=== PATIENT | female | born 1940 | race Caucasian/White ===

== ENCOUNTER 2017-01-20 10:26 | Outpatient (CLI) | payer MEDICARE ==
--- NOTE | 2017-01-20 17:09 | NM ---
WHOLE BODY BONE SCAN: Date: 01/20/17 HISTORY: Lung cancer. RADIOPHARMACEUTICAL: 33 mCi technetium-99m MDP injected intravenously. FINDINGS: There is focal area of increased uptake in the lateral 7th rib. Mildly increased uptake in the shoulders, elbows, and wrists are consistent with degenerative change s. Tracer excretion through the kidneys is within normal limits. IMPRESSION: Focally increased uptake in the left 7th rib, suspicious for metastasis. POS: [facility]
== END 2017-01-20 10:27 | disposition home or self-care (01) ==
LOC: NM 10:26
PROVIDERS: ATTEND Internal Medicine Critical Care Medicine
DX: R91.8 Other nonspecific abnormal finding of lung field (principal)
CPT/HCPCS: 78306; A9503

== ENCOUNTER 2017-01-30 05:59 | Day surgery (SDC) | payer MEDICARE ==
[2017-01-21 14:38] VITALS: BMI 23.9
[2017-01-30] MEDS ORDERED: Lidocaine 4% Topical Sol 50 ML BOT ONE (06:52)
[2017-01-30] MEDS ORDERED: Lidocaine 1% (PF) 30 ML VIAL ONE (06:52)
[2017-01-30] MEDS ORDERED: Lidocaine 2% Jelly 5 ML TUBE ONE (06:52)
[2017-01-30] MEDS ORDERED: Midazolam HCl 2 mg/2 ml Vial ONE (06:54)
[2017-01-30] MEDS ORDERED: Benzocaine 20% Spray 60 ML CAN ONE (06:54)
[2017-01-30] MEDS ORDERED: Fentanyl 100 MCG/2 ML VIAL ONE (06:54)
[2017-01-30] MEDS ORDERED: methylPREDNISolone Sod Succ/PF 125 MG/2 ML VIAL ONE (10:34)
--- NOTE | 2017-01-30 18:39 | OP ---
DATE OF SERVICE: 01/30/2017 PROCEDURE: Fiberoptic bronchoscopy with brushings, washings and biopsies. INDICATION: Rapidly enlarging left lung mass. DESCRIPTION OF PROCEDURE: The patient was sedated with Versed and fentanyl. Once she was sedated, the bronchoscope was passed through her right naris and down to the vocal cords, which appeared norm al, moved normally with phonation. The scope was passed into her trachea which was normal in the ma in [place]. The main [place] was sharp. The right lower lobe, right upper lobe, right middle lobe we re unremarkable. The left lower lobe was unremarkable. Left upper lobe bronchus was obstructed by a friable mass. This was brushed, washed and biopsied multiple times. She coughed continuously thr oughout the procedure in spite of being sedated. She continues to be a heavy smoker. I met with her after the procedure. She had no recollection of the procedure and stated that she wa s comfortable with the procedure today. I met with the family and I met with her separately. I have explained to the family that she has a rapidly progressive malignant process. Hopefully we can identify the cell type and at least slow th is down. She is extremely anxious about all of this and family did not want her to any negative inf ormation, so I simply told her we had seen something in the biopsy and we would wait for those resul ts. She was discharged home in stable condition.
== END 2017-01-30 11:25 | disposition home or self-care (01) ==
LOC: SDC 05:59
PROVIDERS: ATTEND Internal Medicine Critical Care Medicine
PROC: 0BD88ZX Extraction of Left Upper Lobe Bronchus, Via Natural or Artificial Opening Endoscopic, Diagnostic (ICD-10-PCS; principal; 2017-01-30)
DX: C34.12 Malignant neoplasm of upper lobe, left bronchus or lung (principal); F17.200 Nicotine dependence, unspecified, uncomplicated; Z88.5 Allergy status to narcotic agent; Z88.1 Allergy status to other antibiotic agents
CPT/HCPCS: 88112; 88305; 88313; 88341; 88342; 96374; 99152; 99153; J2001; J2250; J2930; J3010; J7620

== ENCOUNTER 2017-02-11 06:35 | Day surgery (SDC) | payer MEDICARE ==
[2017-02-10 12:06] VITALS: BMI 22.8
[2017-02-11] MEDS ORDERED: Propofol 500 MG/50 ML VIAL ONE (07:07)
[2017-02-11] MEDS ORDERED: Fentanyl 100 MCG/2 ML VIAL ONE (07:08)
[2017-02-11] MEDS ORDERED: Lidocaine 1% (PF) 30 ML VIAL ONE (07:38)
[2017-02-11] MEDS ORDERED: Bupivacaine/Epinephrine 0.25% 30 ML VIAL ONE (07:38)
[2017-02-11] MEDS ORDERED: Ketorolac Tromethamine 30 MG/ML VIAL ONE (08:05)
[2017-02-11] MEDS ORDERED: CEFAZOLIN/Water 2 GM/20 ML SYRINGE ONE (08:05)
[2017-02-11] MEDS ORDERED: Ondansetron HCl/PF 4 MG/2 ML Vial ONE (08:33)
[2017-02-11] MEDS ORDERED: PHENYLEPHRINE-NS 100 MCG/ML 10 ML SYRINGE ONE (08:33)
--- NOTE | 2017-02-11 11:11 | OP ---
DATE OF PROCEDURE: 02/11/2017 PREOPERATIVE DIAGNOSIS: Left lung cancer. POSTOPERATIVE DIAGNOSIS: Left lung cancer. OPERATION PERFORMED: Right subclavian low profile power compatible MediPort. SURGEON: Russell Earl M.D. ANESTHESIA: Total intravenous anesthesia with local using 0.25% Marcaine with epinephrine. INDICATIONS: The patient is a 77-year-old white female recently diagnosed with left lung cancer. S he presents at this time for MediPort placement for chemotherapy. OPERATIVE PROCEDURE IN DETAIL: Informed consent was obtained. The patient was taken to the operati ng room where total intravenous anesthesia was obtained with the patient in supine position. Right periclavicular area was prepped with ChloraPrep and draped in sterile fashion. She was placed in Tr endelenburg position. Local anesthetic was infiltrated and a large gauge needle was passed in the c lavicle and subclavian vein on the initial pass. Guidewire was passed through the needle and fluoro scopically confirmed to enter the superior vena cava. Additional local anesthetic was infiltrated. Transverse incision was created based on needle insertion site. A subcutaneous pocket was dissecte d. Introducer dilator was passed over the guidewire under fluoroscopic guidance. The guidewire was removed and the catheter was passed through the introducer, which was then removed in the usual pee l-apart fashion. Catheter tip was positioned at the atrial caval junction. Catheter was trimmed to appropriate length and secured to the locking hub of the MediPort. The port was then secured to th e pectoral fascia with 2 interrupted sutures of 3-0 Prolene. Wound was closed in layers with 3-0 an d 4-0 Monocryl and Dermabond was placed externally. Post-procedure chest x-ray documents good posit ion of the port and catheter. The port was then accessed with the access needle. It aspirated bloo d freely and was flushed with heparinized saline. The needle was left in place and covered with a T egaderm dressing. There were no complications. The patient tolerated the procedure well and was ta mau back to day surgery in stable condition.
--- NOTE | 2017-02-11 13:28 | RAD ---
CHEST ONE VIEW: History: Status post Mediport placement. Comparison: None. FINDINGS: Portable upright chest demonstrates a right sided Mediport catheter with the distal tip projecting i n the superior vena cava. There is near complete opacification left hemithorax, incompletely evaluat ed. Obscuration in the left heart border. No evidence of cardiomegaly. Atherosclerosis of the aorta is normal. No pneumothorax. IMPRESSION: 1. Right sided Mediport catheter placement. No pneumothorax. 2. Opacification left hemithorax. POS: [facility]
== END 2017-02-11 09:40 | disposition home or self-care (01) ==
LOC: SDC 06:35
PROVIDERS: ATTEND Specialist
PROC: 0JH63WZ Insertion of Totally Implantable Vascular Access Device into Chest Subcutaneous Tissue and Fascia, Percutaneous Approach (ICD-10-PCS; principal; 2017-02-11)
DX: C34.92 Malignant neoplasm of unspecified part of left bronchus or lung (principal); C79.51 Secondary malignant neoplasm of bone; E11.9 Type 2 diabetes mellitus without complications; I25.10 Atherosclerotic heart disease of native coronary artery without angina pectoris; E78.5 Hyperlipidemia, unspecified; I11.0 Hypertensive heart disease with heart failure; I50.9 Heart failure, unspecified; K21.9 Gastro-esophageal reflux disease without esophagitis; F17.200 Nicotine dependence, unspecified, uncomplicated; I25.2 Old myocardial infarction; Z79.82 Long term (current) use of aspirin; Z79.899 Other long term (current) drug therapy; Z88.1 Allergy status to other antibiotic agents; Z88.5 Allergy status to narcotic agent; Z90.49 Acquired absence of other specified parts of digestive tract; Z90.711 Acquired absence of uterus with remaining cervical stump; Z98.890 Other specified postprocedural states; Z87.01 Personal history of pneumonia (recurrent)
CPT/HCPCS: 36561; 71010; 78815; A9552; C1788; J0131; J1642; J1885; J2001; J2405; J2704; J3010; J7620

== ENCOUNTER 2017-02-11 13:48 | Outpatient (CLI) | payer MEDICARE ==
--- NOTE | 2017-02-12 10:37 | PET ---
PET CT: HISTORY: A 77-year-old female with biopsy-proven small-cell carcinoma of the left lung on bronchoscopy of 01/30. Exam is requested for restaging. TECHNIQUE: PET scanning with CT attenuation correction was performed from the base of the brain through the prox imal thighs following the intravenous administration of 12 mCi X32-[id number] in the right ar m. Imaging was performed after an uptake interval of 56 minutes. COMPARISON: PET CT dated 10/05/16. CORRELATION: Bone scan of 01/20/[address] [facility] and CT chest of 01/08/17 from [facility]. FINDINGS: There is FDG localization in the large left upper lobe (and lingular) mass extending into the hilum s een on the CT scan with an SUV of 10. In the suprahilar portion of this mass, there is a focus of in creased uptake separate from the remainder of the mass with an SUV of 3.1. Hypermetabolic mediastinal lymph nodes are seen with SUVs of 6.3 in the prevascular, 3.7 in the right paratracheal, 4.1 in the subcarinal, and 4.2 in the posterior mediastinal lymph nodes. No cely hypermetabolism is seen in the neck, axillae, right hilum, abdomen, or pelvis. No hypermeta bolic liver, adrenal, or skeletal lesions are seen. No hypermetabolic activity is seen in the sclerotic focus in the lateral aspect of the left 7th rib. The 7th rib demonstrated increased uptake on the bone scan. The bone windows of the chest CT of 02/14 suggests this is an old fracture. There is physiologic activity in the GI and tracts and the visualized portions of the brain. The CT scan used for attenuation correction demonstrates a tiny left pleural effusion. No pericardia l effusion or ascites is seen. IMPRESSION: 1. Left lung malignancy with mediastinal lymph cely metastases. 2. Tiny left pleural effusion. POS: [facility]
== END 2017-02-11 13:49 | disposition home or self-care (01) ==
LOC: PET 13:48
PROVIDERS: ATTEND Internal Medicine Hematology & Oncology
DX: C39.0 Malignant neoplasm of upper respiratory tract, part unspecified (principal); C34.92 Malignant neoplasm of unspecified part of left bronchus or lung; C77.9 Secondary and unspecified malignant neoplasm of lymph node, unspecified; J90 Pleural effusion, not elsewhere classified
CPT/HCPCS: 78815; A9552

== ENCOUNTER 2017-03-27 11:05 | Day surgery (SDC) | payer MEDICARE ==
[2017-03-27] MEDS ORDERED: Acetaminophen 500 MG TAB PO SCH (12:00)
[2017-03-27] MEDS ORDERED: diphenhydrAMINE 25 MG CAP PO SCH (12:00)
[2017-03-27] MEDS ORDERED: Sodium Chloride 0.9% 20 ML ONE (13:51)
[2017-03-27 18:57] VITALS: BP 166/72; TEMP 97.5
[2017-03-27 19:47] LABS: Band 8 % (5-11); Hemoglobin 10.5 g/dL (12.0-16.0); Lymphocytes 3 % (21-51); MDiff Complete? YES; Mean Corpuscular HGB CONC 33.6 g/dL (32.0-36.0); Mean Corpuscular Hemoglobin 31.9 pg (27.0-31.0); Mean Corpuscular Volume 94.9 fl (81.0-99.0); Mean Platelet Volume 7.4 fL (7.4-10.4); Metamyelocyte 1 % (0-0); Monocytes 9 % (0-10); Neutrophil 77 % (42-75); Platelet Count 464 thou/uL (130-400); RBC Distribution Width 15.3 % (11.5-14.5); Reactive Lymphocytes 2 % (0-10); Red Blood Cell (RBC) Count 3.29 mill/uL (4.20-5.40); White Blood Cell (WBC) Count 19.9 thou/uL (4.8-10.8)
== END 2017-03-27 19:21 | disposition home or self-care (01) ==
LOC: ONC/OP 11:05
PROVIDERS: ATTEND Internal Medicine Hematology & Oncology
PROC: 30233N1 Transfusion of Nonautologous Red Blood Cells into Peripheral Vein, Percutaneous Approach (ICD-10-PCS; principal; 2017-03-27)
DX: D64.9 Anemia, unspecified (principal); D69.59 Other secondary thrombocytopenia; E11.9 Type 2 diabetes mellitus without complications; I25.10 Atherosclerotic heart disease of native coronary artery without angina pectoris; E78.5 Hyperlipidemia, unspecified; I11.0 Hypertensive heart disease with heart failure; I50.9 Heart failure, unspecified; K21.9 Gastro-esophageal reflux disease without esophagitis; Z79.82 Long term (current) use of aspirin; Z79.899 Other long term (current) drug therapy; Z88.5 Allergy status to narcotic agent; Z88.1 Allergy status to other antibiotic agents; Z90.711 Acquired absence of uterus with remaining cervical stump; Z98.890 Other specified postprocedural states
CPT/HCPCS: 36430; 85025; 86850; 86900; 86901; A4216; J1642; P9016

== ENCOUNTER 2017-04-17 10:49 | Outpatient (CLI) | payer MEDICARE ==
--- NOTE | 2017-04-17 12:23 | CT ---
CT CHEST WITHOUT CONTRAST: Technique: Multiple axial tomograms were obtained through the chest without IV enhancement. History: Restaging lung cancer. Comparison: PET CT 02-11-17 at [facility], CT chest performed at [facility] dated 01-08-17. FINDINGS: The opacification seen in the left upper lobe has decreased since the CT PET of 02-11-17. It is also smaller when compared to the 01-08-17 exam at [facility]. In the mid axial plane this left lung mass lesion extends to the pleural surface measuring 5.8 cm width in the axial plane x approximately 2.2 cm AP dimension. Previously this large mass density in the extraaxial plane measured up to 10 cm AP dimension. The mass lesion previously extended to the hilum and obstructed the bronchi. The hilar portion of this mass has resolved. The left upper lobe bronchus is engulfed by this mass peripherally , however, the bronchus just down the hilum appears patent today whereas it was previously occluded. The right lung remains clear. There continues to be a focal area of sclerosis involving the lateral left rib at the site where this mass abuts the pleural surface. This was noted on the recent CT. This could potentially represent an old healed rib fracture although metastatic lesion is not excluded. This area of the left 7th rib al so showed increased activity on bone scan. IMPRESSION: Significant reduction in size of the left upper lobe lung mass when compared to prior studies. POS: [facility]
== END 2017-04-17 10:50 | disposition home or self-care (01) ==
LOC: CT 10:49
PROVIDERS: ATTEND Internal Medicine Hematology & Oncology
DX: C39.0 Malignant neoplasm of upper respiratory tract, part unspecified (principal)
CPT/HCPCS: 71250

== ENCOUNTER 2017-04-23 06:54 | Inpatient (IN) | payer MEDICARE ==
[2017-04-23] MEDS ORDERED: Ondansetron HCl/PF 4 MG/2 ML Vial ONE (07:59)
[2017-04-23] MEDS ORDERED: Pantoprazole 40 MG VIAL ONE (08:39)
[2017-04-23 08:56] LABS: Hemoglobin 8.7 g/dL (12.0-16.0); Mean Corpuscular HGB CONC 33.7 g/dL (32.0-36.0); Mean Corpuscular Hemoglobin 32.1 pg (27.0-31.0); Mean Corpuscular Volume 95.4 fl (81.0-99.0); Mean Platelet Volume 8.2 fL (7.4-10.4); Platelet Count 113 thou/uL (130-400); RBC Distribution Width 16.5 % (11.5-14.5); Red Blood Cell (RBC) Count 2.71 mill/uL (4.20-5.40); White Blood Cell (WBC) Count 10.1 thou/uL (4.8-10.8)
[2017-04-23 09:12] LABS: Band 1 % (5-11); Hypersemented Neutrophil MODERATE; Lymphocytes 12 % (21-51); MDiff Complete? YES; Neutrophil 87 % (42-75); PLT Morphology Comment Appears Decreased; Polychromasia SLIGHT = 2-3 cells (100X) (0-2/hpf); Reflex for Review?? YES
[2017-04-23 09:18] LABS: ALT (SGPT) 39 U/L (8-55); AST (SGOT) 22 U/L (5-34); Albumin 3.2 g/dL (3.4-4.8); Alkaline Phosphatase 224 U/L (40-150); Anion Gap 15 mmol/L (10-20); BUN (Urea Nitrogen) 59 mg/dL (9.8-20.1); Bilirubin, Total 0.6 mg/dL (0.2-1.2); Calc. Creatinine Clearance 0 mL/min (70-130); Calcium 8.8 mg/dL (7.8-10.44); Carbon Dioxide 11 mmol/L (23-31); Chloride 115 mmol/L (98-107); Estimated GFR-MDRD 44; Globulin 2.7 g/dL (2.4-3.5); Glucose 128 mg/dL (83-110); Lipase 156 U/L (8-78); Potassium 4.5 mmol/L (3.5-5.1); Protein, Total 5.9 g/dL (6.0-8.3); Sodium 136 mmol/L (136-145)
[2017-04-23 10:46] LABS: Bilirubin Negative (Negative); Blood, Urine Trace (Negative); Clarity CLEAR (Clear); Glucose, Urine (Dipstick) Negative (Negative); Leukocyte Small (Negative); Nitrite Negative (Negative); Protein, Urine (Dipstick) 100 mg/dL (Neg-Trace); Specific Gravity, Urine 1.017 (1.002-1.036); Urobilinogen 0.2 mg/dL (0.2-1.0)
[2017-04-23 10:48] LABS: Bacteria/HPF None Seen HPF (None Seen); Hyaline Casts/LPF 0-3 HYALINE CAST LPF (0-3 Hyaline); Pathc Cast-AUWi Flag 0.27 (0-2.49); Squamous Epithelial 0-3 HPF (0-3); WBC/HPF 0-3 HPF (0-3)
[2017-04-23 11:27] LABS: Troponin I 0.028 ng/mL (< 0.028)
[2017-04-23] MEDS ORDERED: Ondansetron ODT 4 MG TAB PO PRN ×2 (12:31→12:38)
[2017-04-23] MEDS ORDERED: Ondansetron HCl/PF 4 MG/2 ML Vial IVP PRN ×2 (12:31→12:38)
[2017-04-23] MEDS ORDERED: Acetaminophen 325 MG TAB PO PRN ×2 (12:31→12:38)
[2017-04-23] MEDS ORDERED: Artificial Tears 18 DROP/0.9 ML EA EYE PRN (12:38)
[2017-04-23] MEDS ORDERED: Loratadine 10 MG TAB PO PRN (12:38)
[2017-04-23] MEDS ORDERED: Promethazine HCl 25 MG/ML VIAL IM/IV PRN (12:38)
[2017-04-23] MEDS ORDERED: hydrALAZINE 20 MG/ML VIAL SLOW IVP PRN (12:38)
[2017-04-23] MEDS ORDERED: Eucerin (Mineral Oil/Petrolatum,White) 30 gm Jar TOP PRN (12:38)
[2017-04-23] MEDS ORDERED: Chloraseptic Spray 180 ml Bottle PO PRN (12:38)
[2017-04-23] MEDS ORDERED: Diabetic Tussin 200 MG/10 ML UDCUP PO PRN (12:38)
[2017-04-23] MEDS ORDERED: Sodium Chloride 0.65% Nasal 44 ML BOT EA NARE PRN (12:38)
[2017-04-23] MEDS ORDERED: Loperamide HCl 2 MG CAP PO PRN (12:38)
[2017-04-23] MEDS ORDERED: Mag-Al 1200 mg/1200 mg/30 ML UDCUP PO PRN (12:38)
[2017-04-23] MEDS ORDERED: Sodium Chloride 0.9% 1,000 ML IV SCH (12:45)
--- NOTE | 2017-04-23 13:56 | HP ---
PRIMARY CARE PHYSICIAN: Dr. Ana Castillo. PRIMARY ONCOLOGIST: Dr. Latosha Edward. REASON FOR ADMISSION: Dehydration, intractable nausea, vomiting, and diarrhea. HISTORY OF PRESENT ILLNESS: A 77-year-old female, who has lung cancer and she is getting chemotherap y with Dr. Reina. She is getting chemotherapy for 1 week every 3 weeks basis and her last chemothe rapy cycle was last Friday. Normally, after each cycle, after 3-4 days later, patient starts getting nausea, vomiting, diarrhea and that symptoms lasted for about 2 or 3 days and subsides by itself, bu t after each cycle, she is becoming more and more sick. This time, her sickness was prolonged. She was having nausea and vomiting, which was started 2-3 days ago, and she was not able to keep anything down. Even, she was not tolerating liquid diet, and she was also having several times liquidy bowel movement. She was feeling weak, fatigued, tired, dizzy, and exhausted. She was not having any fever . She did not have any flu-like symptoms. She denies any sore throat, chest pain, palpitations. Sh e denies any crampy abdominal pain. She denies any UTI symptoms. Per patient, she has finished her chemotherapy cycle, and she is supposed to see radiation oncologist today, but they canceled the appointment because the patient was feeling sick and that is why they b rought her to the emergency room for evaluation. In the emergency room, patient appeared very sick. She was not able to tolerate any p.o. intake, and she clinically appeared dehydrated and that is why we decided to keep this patient in the hospital f or further treatment and hydration. Patient denies any NSAID abuse. She denies any epigastric abdominal pain. She denies any hematemesi s or melena or hematochezia. She denies any UTI symptoms, though her urinalysis was abnormal in the emergency room. She denies any headache. She denies any fall or trauma. REVIEW OF SYSTEMS: The following complete review of systems was negative, unless otherwise mentioned in the HPI or below: Constitutional: Weight loss or gain, ability to conduct usual activities. Skin: Rash, itching. Eyes: Double vision, pain. ENT/Mouth: Nose bleeding, neck stiffness, pain, tenderness. Cardiovascular: Palpitations, dyspnea on exertion, orthopnea. Respiratory: Shortness of breath, wh eezing, cough, hemoptysis, fever or night sweats. Gastrointestinal: Poor appetite, abdominal pain, heartburn, nausea, vomiting, constipation, or diarrhea. Genitourinary: Urgency, frequency, dysuria, nocturia. Musculoskeletal: Pain, swelling. Neurologic/Psychiatric: Anxiety, depression. Allergy/I mmunologic: Skin rash, bleeding tendency. Please see my HPI for pertinent positives and negatives. All other review of systems reviewed and ne gative except as mentioned in the HPI. ALLERGIES: The patient is not tolerating CODEINE SULFATE and LEVOFLOXACIN. CURRENT HOME MEDICATIONS: Isosorbide mononitrate 30 mg twice daily, Zocor 40 mg p.o. at bedtime, Ald actone 25 mg p.o. daily, Coreg 3.125 mg twice daily, prochlorperazine 5 mg every 6 hourly p.r.n., Zof ran 8 mg every 4 hourly p.r.n., tramadol 50 mg q.6 hours. p.r.n., and Ativan 0.5 mg q.6 hours p.r.n. PAST MEDICAL HISTORY: Left lung cancer, on chemotherapy; chronic congestive heart failure, EF is not known; history of AK; coronary artery disease; history of diabetes, diet controlled; history of pept ic ulcer disease; history of retinal detachment; hypertension; chronic kidney disease stage 3. PAST SURGICAL HISTORY: Surgery for detached retina, cholecystectomy, hysterectomy, and MediPort plac ement.. PAST PSYCHIATRIC HISTORY: Anxiety and depression. SOCIAL HISTORY: The patient is living at home with family. She smokes about half pack per day. She used to be very heavy smoker. She denies any other illicit drug abuse. FAMILY HISTORY: No strong family history of premature coronary artery disease, stroke, or cancer. EMERGENCY ROOM COURSE: Patient has received Protonix 40 mg IV, IV fluids, and Zofran. PHYSICAL EXAMINATION: VITAL SIGNS: On arrival, blood pressure 155/64, pulse 86, respiratory rate 16, temperature 97.8, sat uration 97% on room air, weight 55 kilograms. GENERAL: The patient is currently hypertensive, appears sick, no acute distress. HEAD: Normocephalic, atraumatic. EYES: Pupils round, reactive to light. Extraocular muscles intact. ENT: Dry mucous membranes, no oral lesions. No pharyngeal erythema, no exudate, no lymph node. NECK: Supple, no JVD, no thyromegaly, no carotid bruit, no meningeal signs of irritation. LUNGS: Clear to auscultation, though air entry reduced at the base, but no rales. No accessory musc les of respiration in use. CARDIAC: S1, S2 appears regular, slight tachycardia, no murmur, no gallop, no rub. ABDOMEN: Soft, bowel sounds present. No peritoneal signs, no guarding, no rigidity, no rebound. BACK: Unremarkable, no CVA tenderness. EXTREMITIES: Upper extremity, passive movement of all joints are normal. Lower extremities, no maria fernanda a. Good peripheral pulsation. SKIN: No skin rash. HEMATOLOGICAL: No lymphadenopathy. PSYCHIATRIC: Normal affect. NEUROLOGIC: Nonfocal examination. The patient moves all 4 limbs. Plantar bilateral flexor. SIGNIFICANT LABORATORY DATA: 1. CBC: WBC 10.1, hemoglobin 8.7, platelet 113, bandemia. BMP: Sodium 136, potassium 4.5, chlorid e 115, carbon dioxide 11, BUN 59, creatinine 1.20, glucose 128, calcium 8.8. 2. LFT: AST 22, ALT 39, alkaline phosphatase 224, albumin 3.2, lipase 156. Troponin I is 0.028. U rinalysis: Leukocyte esterase small. CT chest was done recently, which showed reduction in size of left upper lobe lung mass. ASSESSMENT AND PLAN: 1. Intractable nausea and vomiting after chemotherapy. 2. Dehydration. 3. Anemia of chronic disease. 4. Mild thrombocytopenia. 5. Diarrhea, rule out infection. 6. Hyperchloremic metabolic acidosis with dehydration. 7. Hypoalbuminemia due to protein calorie malnutrition. 8. Ongoing tobacco abuse disorder. 9. History of congestive heart failure. EF is unknown but currently euvolemic and compensated. 10. Hypertension. 11. Dyslipidemia. 12. Anxiety and depression. DISCUSSION: This patient has nausea, vomiting, diarrhea. We are suspecting post-chemotherapy, but i nfection needs to be ruled out. We will also send urine culture to rule out urinary tract infection. At this point, we will avoid antibiotic therapy. The patient will need hydration. The patient leroy l need Oncology evaluation. Oncology will decide whether Radiation Oncology involved during this adm ission or as an outpatient basis. We will start with clear liquid diet and advance to full liquid di et and then regular diet tomorrow. We will prescribe Pepcid 20 mg IV b.i.d. We will prescribe IV fl uids with dextrose with half normal saline with sodium bicarbonate at 125 mL per hour. We will repea t labs. We will send stool for infection workup. PLAN: 1. IV fluids with bicarbonate drip, stool for infection study, urine culture, repeat labs tomorrow, oncology evaluation. 2. Deep venous thrombosis prophylaxis not needed because we are expecting discharge in 24-48 hours. If the patient's condition does not improve, then we will consider changing to inpatient status. Ga strointestinal prophylaxis is Pepcid 20 mg IV b.i.d. 3. Code status discussed with the patient and patient's daughter. The patient is FULL CODE. Miles olvera's daughter is surrogate decision maker. 4. Disposition plan based on clinical course. We are expecting patient's stay in hospital 24-48 esperanza rs.
--- NOTE | 2017-04-23 15:42 | CON ---
DATE OF CONSULTATION: 04/23/2017 REASON FOR CONSULTATION: Lung cancer. HISTORY OF PRESENT ILLNESS: Ms. Andrade is a 77-year-old female who recently completed chemotherapy for limited-stage small cell lung cancer. She has struggled with anorexia and weight loss during treatment. She also has had frequent nausea, vomiting, and diarrhea. She does have irritable bowel, and it was felt that chemotherapy was exacerbating this condition. Her last chemotherapy was 04/16/2017 through 04/18/2017. Over the last few days, she began to have intractable nausea and vomiting. She presented to the emergency room in [place] for evaluation. Her creatinine was mildly elevated. She was dehydrated so she was admitted for nausea control and IV fluids. Patient states she has not had anything significant to eat in several weeks. She was prescribed megestrol in the outpatient setting, but has been unable to obtain. She did have a recent CT scan for restaging, which showed a significant improvement in her lung mass. She is due to see Dr. Lee for sequential radiation. PAST MEDICAL HISTORY: 1. Small cell lung cancer, limited stage. 2. Diabetes mellitus, 2. 3. Hypertension. 4. Coronary artery disease. 5. High cholesterol. 6. Chronic obstructive pulmonary disease. 7. Chronic kidney disease. 8. Arthritis. 9. History of peptic ulcer. 10. History of tobacco use. PAST SURGICAL HISTORY: 1. Hysterectomy. 2. Cholecystectomy. 3. Retina repair. 4. MediPort placement. ALLERGIES: CODEINE and LEVAQUIN. HOME MEDICATIONS: 1. Aspirin 81 mg daily. 2. Carvedilol 3.125 mg b.i.d. 3. Isosorbide 30 mg b.i.d. 4. Lorazepam 0.5 mg p.r.n. 5. Zofran p.r.n. 6. Compazine p.r.n. 7. Simvastatin 40 mg p.o. at bedtime. 8. Aldactone 25 mg daily. 9. Tramadol 50 mg p.r.n. FAMILY HISTORY: Noncontributory. SOCIAL HISTORY: . Has 3 children. Current everyday smoker. No alcohol or illicit drug use. REVIEW OF SYSTEMS: Constitutional: No fever, chills, night sweats. Positive for recent weight loss. Eyes: No blurred or double vision. ENT: No pain, hoarseness. Positive for sore throat and dysphagia. Cardiovascular: No chest pain, palpitations, or syncope. Respiratory: No shortness of breath, dyspnea on exertion, or orthopnea. Gastrointestinal: Positive for nausea, vomiting, and diarrhea. No abdominal pain. Genitourinary: No dysuria or hematuria. Musculoskeletal: Positive for joint and back pain. Skin: No rash or pruritus. Hematologic: No bleeding, bruising, or clotting. Neurologic: Positive for weakness, no headache, numbness, tingling, or seizure activity. Psychiatric: No anxiety or depression. PHYSICAL EXAMINATION: VITAL SIGNS: Temperature is 95.0, pulse is 86, respiratory rate 16, BP is 162/ 73. GENERAL: Chronically ill-appearing female in no acute distress. HEENT: Normocephalic, atraumatic. Pupils equal and reactive to light. NECK: Supple. CARDIOVASCULAR: Regular rate and rhythm. LUNGS: Decreased throughout. ABDOMEN: Soft, nontender, bowel sounds are positive. EXTREMITIES: No clubbing, cyanosis, or edema. SKIN: No rash. HEMATOLOGIC: No petechia or purpura. NEUROLOGICAL: Nonfocal. PSYCHIATRIC: The patient is alert and oriented, and appropriate. PERTINENT LABORATORY AND X-RAYS: Current WBCs 10.1, hemoglobin 8.7, hematocrit 25.8, platelet count is 113,000, 87% neutrophils, 1% bands, 12% lymphocytes. Sodium is 136, potassium 4.5, chloride 115, CO2 is 11, BUN is 59, creatinine 1.2 , calcium 8.8, total bilirubin is 0.6, AST is 22, ALT is 3.9, alkaline phosphatase is 224. Troponin is 0.028, serum total protein 5.9, albumin 3.2, globulin 2.7. ASSESSMENT: 1. Small cell lung cancer, status post 4 cycles of carboplatin and [employer]ING [employer]-16. 2. Nausea, vomiting, diarrhea. 3. Dehydration secondary to #1 and #2, 4. Normocytic anemia. 5. Thrombocytopenia. 6. Protein-deficient malnutrition. DISCUSSION: The patient has been started on IV fluids. She has been given Zofran. Stool studies are pending. We will give Imodium p.r.n. She states that she is feeling significantly better. She still has extremely poor appetite. We will add megestrol to her current medications and monitor her CBC. Thank you for the consult. KELLIE
[2017-04-23] MEDS ORDERED: Megestrol Acetate 800 MG/20 ML UDCUP PO SCH (16:00)
[2017-04-23] MEDS: Sodium Bicarbonate 50 MEQ in Dextrose 5 %-0.45 % NaCl 1,000 ML IV SCH (16:36)
[2017-04-23] MEDS: Famotidine/PF 20 mg/2ml Vial SLOW IVP SCH (22:15)
[2017-04-24] MEDS: Sodium Bicarbonate 50 MEQ in Dextrose 5 %-0.45 % NaCl 1,000 ML IV SCH ×3 (00:40→16:45)
[2017-04-24 06:29] LABS: ALT (SGPT) 27 U/L (8-55); AST (SGOT) 19 U/L (5-34); Albumin 2.6 g/dL (3.4-4.8); Alkaline Phosphatase 171 U/L (40-150); Anion Gap 10 mmol/L (10-20); BUN (Urea Nitrogen) 48 mg/dL (9.8-20.1); Bilirubin, Total 0.3 mg/dL (0.2-1.2); Calc. Creatinine Clearance 34 mL/min (70-130); Calcium 8.2 mg/dL (7.8-10.44); Carbon Dioxide 18 mmol/L (23-31); Chloride 115 mmol/L (98-107); Estimated GFR-MDRD 44; Globulin 2.2 g/dL (2.4-3.5); Glucose 100 mg/dL (83-110); Potassium 4.1 mmol/L (3.5-5.1); Protein, Total 4.8 g/dL (6.0-8.3); Sodium 139 mmol/L (136-145)
[2017-04-24 06:43] LABS: #Basophils 0.1 thou/uL (0.0-0.2); #Lymphocytes 1.9 thou/uL (1.20-3.40); #Neutrophils 3.3 thou/uL (1.40-6.50); %Eosinophils 0.3 % (0.0-10.0); %Monocytes 0.4 % (0.0-10.0); %Neutrophils 62.4 % (42.0-75.0); Hemoglobin 6.5 g/dL (12.0-16.0); Mean Corpuscular HGB CONC 33.6 g/dL (32.0-36.0); Mean Corpuscular Hemoglobin 32.2 pg (27.0-31.0); Mean Corpuscular Volume 95.8 fl (81.0-99.0); Platelet Count 63 thou/uL (130-400); RBC Distribution Width 16.8 % (11.5-14.5); Red Blood Cell (RBC) Count 2.03 mill/uL (4.20-5.40); White Blood Cell (WBC) Count 5.3 thou/uL (4.8-10.8)
[2017-04-24] MEDS: Megestrol Acetate 800 MG/20 ML UDCUP PO SCH (09:01)
--- NOTE | 2017-04-24 13:26 | PDOC.PN ---
- Subjective Encounter Start Date: 04/24/17 Encounter Start Time: 13:24 Subjective: c/o feeling of food stuck in throat,gagging w liquids -: c/o feeling stangled w drinking any liquid as well as painful swollow -: symptoms started 3-4 days ago - Objective Resuscitation Status: Resuscitation Status FULL:Full Resuscitation MAR Reviewed: Yes Vital Signs & Weight: Vital Signs (12 hours) Temp Pulse Resp BP BP BP Pulse Ox 04/24/17 12:00 97.8 F 78 16 133/60 96 04/24/17 08:00 98.1 F 74 18 121/60 121/60 97 04/24/17 04:00 98.1 F 68 16 135/65 99 04/24/17 03:55 98.1 F 72 16 131/62 100 Weight Admit Weight 116 lb 14.4 oz Weight 116 lb 14.4 oz I&O: 04/23/17 04/24/17 04/25/17 06:59 06:59 06:59 Intake Total 1540 Output Total 750 Balance 790 Result Diagrams: 04/25/17 08:49 04/25/17 08:49 Additional Labs: Laboratory Tests 01/08/17 03/27/17 04/23/17 12:04 19:00 08:38 Hgb 14.2 10.5 L 8.7 L 04/24/17 06:01 Hgb 6.5 L Phys Exam - Physical Examination Constitutional: NAD weak ,tired, HEENT: PERRLA, moist MMs, sclera anicteric, oral pharynx no lesions no oral thrush Neck: no nodes, no JVD, supple, full ROM Respiratory: no wheezing, no rales, no rhonchi, clear to auscultation bilateral Cardiovascular: RRR, no significant murmur Gastrointestinal: soft, non-tender, no distention, positive bowel sounds Musculoskeletal: no edema, pulses present Neurological: non-focal, normal sensation, moves all 4 limbs Psychiatric: normal affect, A&O x 3 Skin: no rash Dx/Plan (1) Intractable nausea and vomiting Code(s): R11.2 - NAUSEA WITH VOMITING, UNSPECIFIED Status: Acute Comment: improved (2) Dysphagia Code(s): R13.10 - DYSPHAGIA, UNSPECIFIED Status: Acute Qualifiers: Dysphagia type: pharyngoesophageal phase Qualified Code(s): R13.14 - Dysphagia, pharyngoesophageal phase (3) Dehydration Code(s): E86.0 - DEHYDRATION Status: Acute (4) NITZA (acute kidney injury) Code(s): N17.9 - ACUTE KIDNEY FAILURE, UNSPECIFIED Status: Acute Comment: improving (5) Metabolic acidosis Code(s): E87.2 - ACIDOSIS Status: Acute (6) Anemia Code(s): D64.9 - ANEMIA, UNSPECIFIED Status: Acute Qualifiers: 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, drug-induced Comment: due to recent chemotherapy (7) Thrombocytopenia Code(s): D69.6 - THROMBOCYTOPENIA, UNSPECIFIED Status: Acute Comment: d/t chemoRx (8) COPD (chronic obstructive pulmonary disease) Status: Chronic (9) DM2 (diabetes mellitus, type 2) Status: Chronic Qualifiers: Diabetes mellitus complication status: with hyperglycemia (10) HTN (hypertension) Code(s): I10 - ESSENTIAL (PRIMARY) HYPERTENSION Status: Chronic (11) HLD (hyperlipidemia) Code(s): E78.5 - HYPERLIPIDEMIA, UNSPECIFIED Status: Chronic (12) Lung cancer Code(s): C34.90 - MALIGNANT NEOPLASM OF UNSP PART OF UNSP BRONCHUS OR LUNG Status: Chronic Comment: on ChemoRx (13) Moderate protein-calorie malnutrition Code(s): E44.0 - MODERATE PROTEIN-CALORIE MALNUTRITION Status: Chronic - Plan PT/OT, out of bed/ambulate, DVT proph w/SCDs will consult Gi for possible EGD given significant odynophagia/dysphagia -: ? angelina esophagitis Vs FB.Cont IVF for now -: will transfuse 1 unit PRBC as H/H ternded down.monitor. -: renal Fx improving.cont to monitor. -: Not ready for Dc yet.discussed w daughter in detail * . Review of Systems - Review of Systems Constitutional: weakness, malaise Respiratory: negative: Cough, Dry, Shortness of Breath, Hemoptysis, SOB with Excertion, Pleuritic Pain, Sputum, Wheezing Cardiovascular: negative: chest pain, palpitations, orthopnea, paroxysmal nocturnal dyspnea, edema, light headedness, other Gastrointestinal: Other Genitourinary: negative: Dysuria, Frequency, Incontinence, Hematuria, Retention , Other Musculoskeletal: negative: Neck Pain, Shoulder Pain, Arm Pain, Back Pain, Hand Pain, Leg Pain, Foot Pain, Other Neurological: negative: Weakness, Numbness, Incoordination, Change in Speech, Confusion, Seizures, Other - Medications/Allergies Allergies/Adverse Reactions: Allergies Allergy/AdvReac Type Severity Reaction Status Date / Time codeine Allergy Intermediate SOB Verified 04/23/17 13:03 levofloxacin [From Levaquin] Allergy PT DOES Verified 04/23/17 13:03 NOT REMEMBER Medications: Current Medications Acetaminophen (Tylenol) 650 mg PO Q4H PRN PRN Reason: Headache/Fever or Pain Al Hydroxide/Mg Hydroxide (Maalox) 30 ml PO Q6H PRN PRN Reason: Heartburn or Indigestion Albuterol/Ipratropium (Duoneb) 3 ml NEB [id number] PRN PRN Reason: SOB &/or Wheezing Artificial Tears (Tears Naturale) 0 drop EA EYE PRN PRN PRN Reason: Dry Eyes Famotidine (Pepcid) 20 mg SLOW IVP Q24HR [facility] Last Admin: 04/23/17 22:15 Dose: Not Given Guaifenesin (Robitussin Sf) 200 mg PO Q4H PRN PRN Reason: Cough Hydralazine HCl (Apresoline) 10 mg SLOW IVP Q4H PRN PRN Reason: Systolic BP > 180 Sodium Bicarbonate 50 meq/ (Dextrose/Sodium Chloride) 1,050 mls @ 125 mls/hr IV .Q8H24M [facility] Last Admin: 04/24/17 00:40 Dose: 1,050 mls Loperamide HCl (Imodium) 2 mg PO PRN PRN PRN Reason: Diarrhea/Loose Stools Loratadine (Claritin) 10 mg PO DAILYPRN PRN PRN Reason: Sinus Symptoms Megestrol Acetate (Megace) 800 mg PO DAILY [facility] Last Admin: 04/24/17 09:01 Dose: 800 mg Mineral Oil/White Petrolatum (Eucerin Cream) 0 gm TOP BIDPRN PRN PRN Reason: Dry Skin Ondansetron HCl (Zofran Odt) 4 mg PO Q6H PRN PRN Reason: Nausea/Vomiting Ondansetron HCl (Zofran) 4 mg IVP Q6H PRN PRN Reason: Nausea/Vomiting Phenol (Chloraseptic [place] 180 Ml Bot) 0 ml PO PRN PRN PRN Reason: Sore Throat Promethazine HCl (Phenergan) 25 mg IM/IV Q6H PRN PRN Reason: Nausea/Vomiting Sodium Chloride ([place] Nasal [place] 0.65%) 0 ml EA NARE QIDPRN PRN PRN Reason: Nasal Congestion
[2017-04-24] MEDS ORDERED: Lorazepam 0.5 MG TAB PO PRN (18:50)
--- NOTE | 2017-04-24 19:27 | CON ---
DATE OF CONSULTATION: 04/24/2017 REQUESTING PHYSICIAN: Dr. Rodriguez. REASON FOR CONSULTATION: Dysphagia and odynophagia. HISTORY OF PRESENT ILLNESS: Katalina Andrade is a very pleasant 77-year-old woman who is being treated for small cell lung cancer. She has been undergoing chemotherapy the past few months. She has nisreen acteristic side effects of nausea, vomiting, and diarrhea. She was hospitalized here yesterday, pres enting with poor oral intake and dehydration. She reports that in addition to the regular nausea, sh zhane has also been having significant dysphagia and odynophagia to both solids and liquids really for th e past couple of weeks, this started with significant hiccups and then she began to feel that both fo od and liquid were hanging up in the chest on the way down. She has had a few episodes of regurgitat ion occasionally, but now anything she swallows will give her significant chest pain. She recalls paul jackg undergone an EGD back around 2009 and being diagnosed with peptic ulcer disease, and had been on a PPI for a long time, though she has really not been able to tolerate any medications lately and th ere is no PPI on her home list. She did have a recent restaging CT of the chest a week ago and this demonstrated that her lung mass had been shrinking. REVIEW OF SYSTEMS: Full review of systems including constitutional, head, eyes, ears, nose, throat, GI, , cardiovascular, respiratory, musculoskeletal, and neurologic systems is negative except as no mandie in the HPI. PAST MEDICAL HISTORY: Left-sided nonsmall cell lung cancer, on chemotherapy; congestive heart failur e; history of NH; coronary artery disease; diabetes, diet controlled; history of peptic ulcer disease around 2009; retinal detachment; hypertension; chronic kidney disease stage 3; cholecystectomy; hyst erectomy; MediPort placement; depression and anxiety. SOCIAL HISTORY: Smokes about a half pack per day. She used to be very heavy smoker. No drug abuse. FAMILY HISTORY: Noncontributory. ALLERGIES: CODEINE and LEVAQUIN. HOME MEDICATIONS: Aspirin, carvedilol, isosorbide, lorazepam, Zofran p.r.n., Compazine p.r.n., simva statin, Aldactone, and tramadol. PHYSICAL EXAMINATION: VITAL SIGNS: Temperature 97.8, pulse 81, blood pressure 144/68, 96% oxygen saturation on room air. GENERAL: Frail, pale, 77-year-old woman sitting up in bed comfortably, in no acute distress. SKIN: She is pale, no jaundice. EYES: No scleral icterus. Extraocular movements intact. ENT: Mucous membranes moist, no oral lesions. LYMPH: No submandibular, supraclavicular lymphadenopathy. THYROID: Nontender to palpation. HEART: Regular rate and rhythm. LUNGS: Clear to auscultation bilaterally. ABDOMEN: Bowel sounds present, soft and nontender to palpation throughout. EXTREMITIES: No peripheral edema. VESSELS: Radial pulses 2+ bilaterally. NEUROLOGICAL: Cranial nerves II-XII intact bilaterally. No focal deficits. LABORATORY STUDIES: Hemoglobin 6.5, it was 8.7 yesterday; WBC 5.3; platelets 63. Sodium 139, potass ium 4.1, BUN 48, creatinine 1.19, alkaline phosphatase 171, AST 19, ALT 27, total bilirubin 0.3, lipa se 156, and troponin 0.028. ASSESSMENT AND PLAN: 1. Dysphagia. 2. Odynophagia. 3. Left-sided nonsmall cell lung cancer, on chemotherapy. 4. Anemia. The patient and I discussed potential etiologies for dysphagia and odynophagia. This would include s evere gastroesophageal reflux disease, Peggy esophagitis for which she is certainly at risk in her immunocompromised state or possibly a metastatic lesion under direct invasion of her tumor, though no tably on CT scan a week ago. There did not appear to be evidence of esophageal involvement. Further investigation is certainly warranted, so we will plan for EGD tomorrow. Further recommendations to be based on findings. Please have her n.p.o. after midnight for the procedure. Thank you for the consultation. Please call any time with questions or concerns.
[2017-04-24] MEDS ORDERED: Simvastatin 40 MG TAB PO SCH (21:00)
[2017-04-24] MEDS: Atorvastatin Calcium 20 MG TAB PO SCH (22:36)
[2017-04-24] MEDS: Carvedilol 3.125 MG TAB PO SCH (22:37)
[2017-04-24] MEDS: Famotidine/PF 20 mg/2ml Vial SLOW IVP SCH (22:37)
[2017-04-25] MEDS: Sodium Bicarbonate 50 MEQ in Dextrose 5 %-0.45 % NaCl 1,000 ML IV SCH (01:29)
[2017-04-25] MEDS ORDERED: NACL IV SCH (08:35)
[2017-04-25] MEDS ORDERED: DEXTROSE IV SCH (08:35)
[2017-04-25] MEDS ORDERED: ADMIXTURE FEE IV SCH (08:35)
[2017-04-25] MEDS ORDERED: SODIUM BICARBONATE IV SCH (08:35)
[2017-04-25 09:25] LABS: Anion Gap 11 mmol/L (10-20); BUN (Urea Nitrogen) 28 mg/dL (9.8-20.1); Calc. Creatinine Clearance 44 mL/min (70-130); Calcium 8.2 mg/dL (7.8-10.44); Carbon Dioxide 20 mmol/L (23-31); Chloride 113 mmol/L (98-107); Estimated GFR-MDRD 59; Glucose 92 mg/dL (83-110); Sodium 140 mmol/L (136-145)
[2017-04-25] MEDS: Carvedilol 3.125 MG TAB PO SCH ×2 (09:30→20:24)
[2017-04-25 09:37] LABS: Anisocytosis SLIGHT = 6-15 cells (100X) (0-5/hpf); Hemoglobin 7.5 g/dL (12.0-16.0); Lymphocytes 38 % (21-51); MDiff Complete? YES; Mean Corpuscular Hemoglobin 31.2 pg (27.0-31.0); Mean Corpuscular Volume 94.5 fl (81.0-99.0); Mean Platelet Volume 8.6 fL (7.4-10.4); Monocytes 4 % (0-10); Neutrophil 58 % (42-75); PLT Morphology Comment Appears Decreased; Platelet Count 39 thou/uL (130-400); RBC Distribution Width 16.3 % (11.5-14.5); Red Blood Cell (RBC) Count 2.41 mill/uL (4.20-5.40); White Blood Cell (WBC) Count 3.1 thou/uL (4.8-10.8)
--- NOTE | 2017-04-25 13:38 | PQF ---
CLINICAL DOCUMENTATION IMPROVEMENT CLARIFICATION FORM: ICD-10 Updated PLEASE DO AN ADDENDUM TO THE PROGRESS NOTE WITH ANY DOCUMENTATION UPDATES OR ADDITIONS AND CARRY THROUGH TO DC SUMMARY. THANK YOU. Date: 04/25 ATTN: DR. Omaira ABDUL Please exercise your independent, professional judgment in responding to the clarification form. Clinical indicators are provided on the bottom of this form for your review Please check appropriate box(s): [ ] Protein Calorie Malnutrition: [ ] Mild [X ] Moderate [ ] Severe [ ] Other Malnutrition (please specify) __ [ ] Underweight without malnutrition [ ] Cachexia [ ] Other diagnosis [ ] Unable to determine CLINICAL INDICATORS - SIGNS / SYMPTOMS / LABS BMI: 20.1 PHYSICIAN H&P DOCUMENTATION 04/23: ASSESSMENT & PLAN: 7. HYPOALBUMINEMIA D/T PROTEIN CALORIE MALNUTRITION ONCOLOGY CONSULT DOCUMENTATION 04/23: HX PRESENT ILLNESS: SHE HAS STRUGGLED WITH ANOREXIA & WEIGHT LOSS DURING TREATMENT. ...PATIENT STATES SHE HAS NOT HAD ANYTHING SIGNIFICANT TO EAT IN SEVERAL WEEKS. ASSESSMENT: 6. PROTEIN- DEFICIENT MALNUTRITION. ATTENDING PN 04/24: SUBJECTIVE: C/O FEELING OF FOOD STUCK IN THROAT, GAGGING W/ LIQUIDS; C/O FEELING STRANGLED W/DRINKING ANY LIQUID WELL PAINFUL SWALLOW. DX/PLAN: 2. ACUTE DYSPHAGIA NUTRITION ASSESSMENT 04/24: PATIENT REPORTS DECREASED APPETITE FOR A LONG TIME WITH APPROXIMATELY 22 LB WT LOSS SINCE JANUARY. SHE HAS LOST APPROX 6 LBS OVER THE PAST 1 WEEK. ...SHE STATES IT IS PAINFUL WHEN SHE SWALLOWS, ESPECIALLY LIQUIDS. % WT CHANGE: 5% IN PAST 1 WEEK, 16% IN ABOUT 2 MTHS RISK FACTORS L LUNG CANCER UNDERGOING CHEMO POOR PO INTAKE W/N/V/D TREATMENT: NUTRITION ASSESSMENT PO MEGACE FOR APPETITE STIMULATION (04/24 TO PRESENT) GI CONSULT FOR ACUTE DYSPHAGIA THANK YOU! Dee (This form is maintained as a part of the permanent medical record) 2014 [employer]. All Rights Reserved Dee Linares RN, BSN [email or web address] Office: [phone] [facility]
--- NOTE | 2017-04-25 13:57 | PDOC.PN ---
- Subjective Encounter Start Date: 04/25/17 Encounter Start Time: 13:55 Subjective: feels better but still with symptoms of hiccups and odynophagia -: no overnight events - Objective MAR Reviewed: Yes Vital Signs & Weight: Vital Signs (12 hours) Temp Pulse Resp BP Pulse Ox 04/25/17 12:00 97.8 F 70 20 135/64 100 04/25/17 08:00 98 F 73 20 100 04/25/17 07:20 98 F 73 20 148/65 H 100 04/25/17 04:00 98.0 F 68 16 126/66 98 I&O: 04/24/17 04/25/17 04/26/17 06:59 06:59 06:59 Intake Total 1150 Balance 1150 Result Diagrams: 04/25/17 08:49 04/25/17 08:49 Additional Labs: Laboratory Tests 06/17/12 10/26/14 12/20/15 09:41 11:25 11:14 Creatinine 1.14 H 1.35 H 1.66 H 09/23/16 03/26/17 04/16/17 13:48 10:13 12:02 Creatinine 1.98 H 1.70 H 1.77 H 04/23/17 04/24/17 08:38 06:01 Creatinine 1.20 H 1.19 H Microbiology 04/24/17 23:50 Stool - Liquid Rapid Parasite Screen - Final 04/24/17 23:50 Stool - Liquid Campylobacter Antigen Assay - Final 04/24/17 23:50 Stool - Liquid Shiga Toxin Test - Final 04/24/17 23:50 Stool C. difficile GDH Antigen & Toxins - Final 04/24/17 23:50 Stool Clostridium difficile Toxin A&B PCR - Final 04/24/17 23:50 Stool - Liquid Stool Culture - Preliminary 04/23/17 17:05 Urine voided Urine Culture - Preliminary NO GROWTH AT 24 HOURS Phys Exam - Physical Examination Constitutional: NAD HEENT: PERRLA, moist MMs, sclera anicteric, oral pharynx no lesions Neck: no nodes, no JVD, supple, full ROM Respiratory: no wheezing, no rales, no rhonchi, clear to auscultation bilateral Cardiovascular: RRR, no significant murmur Gastrointestinal: soft, non-tender, no distention, positive bowel sounds Musculoskeletal: no edema, pulses present Neurological: non-focal, normal sensation, moves all 4 limbs Psychiatric: normal affect, A&O x 3 Skin: no rash Dx/Plan (1) Intractable nausea and vomiting Code(s): R11.2 - NAUSEA WITH VOMITING, UNSPECIFIED Status: Acute Comment: improved (2) Dysphagia Code(s): R13.10 - DYSPHAGIA, UNSPECIFIED Status: Acute Qualifiers: Dysphagia type: pharyngoesophageal phase Qualified Code(s): R13.14 - Dysphagia, pharyngoesophageal phase (3) Dehydration Code(s): E86.0 - DEHYDRATION Status: Acute (4) NITZA (acute kidney injury) Code(s): N17.9 - ACUTE KIDNEY FAILURE, UNSPECIFIED Status: Acute Comment: improving (5) Metabolic acidosis Code(s): E87.2 - ACIDOSIS Status: Acute (6) Anemia Code(s): D64.9 - ANEMIA, UNSPECIFIED Status: Acute Qualifiers: 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, drug-induced Comment: due to recent chemotherapy (7) Thrombocytopenia Code(s): D69.6 - THROMBOCYTOPENIA, UNSPECIFIED Status: Acute Comment: d/t chemoRx (8) COPD (chronic obstructive pulmonary disease) Status: Chronic (9) DM2 (diabetes mellitus, type 2) Status: Chronic Qualifiers: Diabetes mellitus complication status: with hyperglycemia (10) HTN (hypertension) Code(s): I10 - ESSENTIAL (PRIMARY) HYPERTENSION Status: Chronic (11) HLD (hyperlipidemia) Code(s): E78.5 - HYPERLIPIDEMIA, UNSPECIFIED Status: Chronic (12) Lung cancer Code(s): C34.90 - MALIGNANT NEOPLASM OF UNSP PART OF UNSP BRONCHUS OR LUNG Status: Chronic Comment: on ChemoRx (13) Moderate protein-calorie malnutrition Code(s): E44.0 - MODERATE PROTEIN-CALORIE MALNUTRITION Status: Chronic - Plan PT/OT, licensed clinical social worker, DVT proph w/SCDs EGD today.NPO for now.cont IVF but reduce rate. -: HD stable.H/H improved post transfusion yesterday.monitor -: Platelet counts still low.Peg d/t recent Chemo.monitor. -: renal Fx has improved.diarrhea resolved.stool studies negative -: Peg DEXTER tomorrow if EGD Normal & do not require further intervention * . Review of Systems - Review of Systems Constitutional: negative: fever, chills, sweats, weakness, malaise, other Respiratory: negative: Cough, Dry, Shortness of Breath, Hemoptysis, SOB with Excertion, Pleuritic Pain, Sputum, Wheezing Cardiovascular: negative: chest pain, palpitations, orthopnea, paroxysmal nocturnal dyspnea, edema, light headedness, other Gastrointestinal: negative: Nausea, Vomiting, Abdominal Pain, Diarrhea, Constipation, Melena, Hematochezia, Other Genitourinary: negative: Dysuria, Frequency, Incontinence, Hematuria, Retention , Other Musculoskeletal: negative: Neck Pain, Shoulder Pain, Arm Pain, Back Pain, Hand Pain, Leg Pain, Foot Pain, Other Neurological: negative: Weakness, Numbness, Incoordination, Change in Speech, Confusion, Seizures, Other - Medications/Allergies Allergies/Adverse Reactions: Allergies Allergy/AdvReac Type Severity Reaction Status Date / Time codeine Allergy Intermediate SOB Verified 04/23/17 13:03 levofloxacin [From Levaquin] Allergy PT DOES Verified 04/23/17 13:03 NOT REMEMBER Medications: Current Medications Acetaminophen (Tylenol) 650 mg PO Q4H PRN PRN Reason: Headache/Fever or Pain Al Hydroxide/Mg Hydroxide (Maalox) 30 ml PO Q6H PRN PRN Reason: Heartburn or Indigestion Albuterol/Ipratropium (Duoneb) 3 ml NEB [id number] PRN PRN Reason: SOB &/or Wheezing Artificial Tears (Tears Naturale) 0 drop EA EYE PRN PRN PRN Reason: Dry Eyes Atorvastatin Calcium (Lipitor) 20 mg PO HS [facility] Last Admin: 04/24/17 22:36 Dose: 20 mg Carvedilol (Coreg) 3.125 mg PO BID [facility] Last Admin: 04/25/17 09:30 Dose: 3.125 mg Famotidine (Pepcid) 20 mg SLOW IVP Q24HR [facility] Last Admin: 04/24/17 22:37 Dose: 20 mg Guaifenesin (Robitussin Sf) 200 mg PO Q4H PRN PRN Reason: Cough Hydralazine HCl (Apresoline) 10 mg SLOW IVP Q4H PRN PRN Reason: Systolic BP > 180 Sodium Bicarbonate 50 meq/Miscellaneous Medication 1 each/ Dextrose/Sodium Chloride 1,050 mls @ 70 mls/hr IV .Q15H [facility] Last Admin: 04/25/17 09:24 Dose: 1,050 mls Isosorbide Mononitrate (Imdur Er) 30 mg PO BID [facility] Last Admin: 04/24/17 22:36 Dose: 30 mg Loperamide HCl (Imodium) 2 mg PO PRN PRN PRN Reason: Diarrhea/Loose Stools Loratadine (Claritin) 10 mg PO DAILYPRN PRN PRN Reason: Sinus Symptoms Lorazepam (Ativan) 0.5 mg PO Q6H PRN PRN Reason: Anxiety Megestrol Acetate (Megace) 800 mg PO DAILY [facility] Last Admin: 04/24/17 09:01 Dose: 800 mg Mineral Oil/White Petrolatum (Eucerin Cream) 0 gm TOP BIDPRN PRN PRN Reason: Dry Skin Multivitamins (Theragran) 1 tab PO DAILY [facility] Ondansetron HCl (Zofran Odt) 4 mg PO Q6H PRN PRN Reason: Nausea/Vomiting Ondansetron HCl (Zofran) 4 mg IVP Q6H PRN PRN Reason: Nausea/Vomiting Phenol (Chloraseptic [place] 180 Ml Bot) 0 ml PO PRN PRN PRN Reason: Sore Throat Promethazine HCl (Phenergan) 25 mg IM/IV Q6H PRN PRN Reason: Nausea/Vomiting Sodium Chloride ([place] Nasal [place] 0.65%) 0 ml EA NARE QIDPRN PRN PRN Reason: Nasal Congestion Sodium Chloride (Flush - Normal Saline) 10 ml IVF Q12HR [facility] Last Admin: 04/24/17 22:37 Dose: 10 ml Sodium Chloride (Flush - Normal Saline) 10 ml IVF PRN PRN PRN Reason: Saline Flush
[2017-04-25] MEDS: Multivit, Therapeutic 1 TAB PO SCH (15:18)
[2017-04-25] MEDS: Megestrol Acetate 800 MG/20 ML UDCUP PO SCH (15:19)
--- NOTE | 2017-04-25 15:36 | OP ---
DATE OF PROCEDURE: 04/25/2017 SURGEON: Brandon Varela M.D. WIRING TECHNICIAN SURGEON: None. PROCEDURE: Esophagogastroduodenoscopy, diagnostic. INDICATION: Dysphagia and odynophagia. MEDICATIONS: See anesthesia record. FINDINGS: After discussion of the risks, benefits and alternatives of the procedure, informed consen t was obtained and witnessed. Pre-endoscopic cardiopulmonary examination was satisfactory. Timeout was performed before sedation was achieved. Sedation was achieved with anesthesia assistance in the endoscopy unit. A Pentax adult upper endoscope was placed into the oropharynx and passed through the cricopharyngeus under direct visualization. The proximal esophageal mucosa appeared normal. In the mid esophagus, there is erosive esophagitis with some linear erosions extending all the way from 25 cm down to the GE junction at 40 cm from the incisors. At the GE junction in the distal esophagus, t here is more severe esophagitis with circumferential erosions and ulceration. There was no bleeding from this area. This has an appearance consistent with reflux mediated damage. The endoscope was pa ssed through the GE junction and into the stomach. Forward and retroflexed views of the entire gastr ic mucosa were obtained. The gastric mucosa appeared normal. The endoscope was then advanced throug h the pylorus and into the first and second portions of the duodenum, which also appeared normal. Th e upper endoscope was then completely withdrawn and the patient allowed to recover. The patient tole rated the procedure well. There were no immediate post-procedure complications. IMPRESSION: 1. Severe LA grade D erosive esophagitis with ulcerations at the gastroesophageal junction, and line ar erosions extending from 25 cm to 40 cm from the incisors. 2. Otherwise, normal esophagogastroduodenoscopy. 3. No evidence of candidiasis or mass lesion on this exam. RECOMMENDATIONS: 1. Twice daily proton pump inhibitor. 2. Elevate head of the bed. 3. Stay upright for at least 30-60 minutes after any medication administration. 4. Advance diet as tolerated. GI will sign off, but please call back if needed.
[2017-04-25] MEDS: Famotidine/PF 20 mg/2ml Vial SLOW IVP SCH (20:24)
[2017-04-25] MEDS: Atorvastatin Calcium 20 MG TAB PO SCH (20:24)
[2017-04-26 04:31] LABS: Platelet Count 24 thou/uL (130-400)
[2017-04-26 04:33] LABS: Anion Gap 7 mmol/L (10-20); BUN (Urea Nitrogen) 23 mg/dL (9.8-20.1); Calc. Creatinine Clearance 42 mL/min (70-130); Calcium 7.8 mg/dL (7.8-10.44); Carbon Dioxide 24 mmol/L (23-31); Chloride 112 mmol/L (98-107); Estimated GFR-MDRD 55; Glucose 88 mg/dL (83-110); Potassium 3.7 mmol/L (3.5-5.1); Sodium 139 mmol/L (136-145)
[2017-04-26 05:19] LABS: Band 2 % (5-11); Hemoglobin 6.6 g/dL (12.0-16.0); Hypochromia SLIGHT = 6-15 cells (100X) (0-5/hpf); Lymphocytes 44 % (21-51); MDiff Complete? YES; Mean Corpuscular Hemoglobin 31.9 pg (27.0-31.0); Mean Corpuscular Volume 93.8 fl (81.0-99.0); Mean Platelet Volume 8.7 fL (7.4-10.4); Monocytes 8 % (0-10); Neutrophil 46 % (42-75); PLT Morphology Comment Appears Decreased; RBC Distribution Width 15.7 % (11.5-14.5); Red Blood Cell (RBC) Count 2.06 mill/uL (4.20-5.40); White Blood Cell (WBC) Count 1.7 thou/uL (4.8-10.8)
[2017-04-26] MEDS: Carvedilol 3.125 MG TAB PO SCH (08:13)
[2017-04-26] MEDS: Multivit, Therapeutic 1 TAB PO SCH (08:14)
[2017-04-26] MEDS: Megestrol Acetate 800 MG/20 ML UDCUP PO SCH (08:14)
[2017-04-26 08:17] VITALS: BP 150/67
[2017-04-26 09:03] VITALS: TEMP 97.8
--- NOTE | 2017-04-26 09:32 | DIS ---
DATE OF ADMISSION: 04/23/2017 DATE OF DISCHARGE: 04/26/2017 PRIMARY DISCHARGE DIAGNOSES: 1. Intractable nausea and vomiting. 2. Diarrhea. 3. Lung carcinoma. HOSPITAL COURSE: The patient was admitted on the 04/23/2017 secondary to intractable nausea, vomitin g, and diarrhea. She had been undergoing chemotherapy as an outpatient with Dr. Reina. She was no mandie to be volume depleted upon admission. Stool samples were negative for parasites and C. diff. [facility] patient also complained of odynophagia during her admission. She was seen and assessed by the [facility] roenterology Service. EGD revealed erosive esophagitis with ulcerations. Patient was admitted with pancytopenic results. Her pancytopenia slightly worsened during her hospital stay. This was felt to be a normal reaction to her chemotherapy and somewhat dilutional from fluid resuscitation. Patient' s diarrhea, nausea, and vomiting improved. She was deemed stable for discharge for continued followu p in the Oncology Service where she has a pending appointment with the Radiation Oncology Service. CONSULTANTS: Dr. Varela, Gastroenterology. PROCEDURES: EGD, results as described above. DISCHARGE DISPOSITION: To home. DISCHARGE DIET: Heart healthy. DISCHARGE MEDICATIONS: We will resume her home meds per the medication reconciliation list. We will also add proton pump inhibitor twice a day as recommended by the Gastroenterology Service. PHYSICAL EXAMINATION: GENERAL: She is in no acute distress. HEAD: Normocephalic, atraumatic. EYES: PERRL. Extraocular muscles intact. CARDIAC: Regular rate and rhythm. LUNGS: Clear to auscultation. ABDOMEN: Nontender, nondistended. EXTREMITIES: No clubbing, cyanosis or edema. FOLLOWUP: The patient is to follow up with her PCP within 10 days. She is also to follow up with health system Radiation Oncology Service. Continue for her regular visits with Dr. Cheyanne Reina.
== END 2017-04-26 09:40 | disposition home or self-care (01) | DRG 391 ==
LOC: ERS 06:54 → ONC 10:46 → OBSVTOIN 04-24 14:30
PROVIDERS: ADMIT Internal Medicine; ATTEND Internal Medicine
PROC: 30233N1 Transfusion of Nonautologous Red Blood Cells into Peripheral Vein, Percutaneous Approach (ICD-10-PCS; 2017-04-24)
PROC: 0DJ08ZZ Inspection of Upper Intestinal Tract, Via Natural or Artificial Opening Endoscopic (ICD-10-PCS; principal; 2017-04-25)
DX: R11.2 Nausea with vomiting, unspecified (principal); D61.810 Antineoplastic chemotherapy induced pancytopenia; E87.2 Acidosis; E46 Unspecified protein-calorie malnutrition; I13.0 Hypertensive heart and chronic kidney disease with heart failure and stage 1 through stage 4 chronic kidney disease, or unspecified chronic kidney disease; E11.22 Type 2 diabetes mellitus with diabetic chronic kidney disease; I50.9 Heart failure, unspecified; K22.10 Ulcer of esophagus without bleeding; N18.3 Chronic kidney disease, stage 3 (moderate); C34.90 Malignant neoplasm of unspecified part of unspecified bronchus or lung; E86.0 Dehydration; I25.2 Old myocardial infarction; I25.10 Atherosclerotic heart disease of native coronary artery without angina pectoris; F17.210 Nicotine dependence, cigarettes, uncomplicated; E78.5 Hyperlipidemia, unspecified; I10 Essential (primary) hypertension; F41.9 Anxiety disorder, unspecified; F32.9 Major depressive disorder, single episode, unspecified; R13.10 Dysphagia, unspecified; R19.7 Diarrhea, unspecified; Z68.20 Body mass index [BMI] 20.0-20.9, adult; R62.7 Adult failure to thrive
CPT/HCPCS: 36415; 36430; 80048; 80053; 81003; 81015; 83690; 84484; 85025; 85060; 86850; 86900; 86901; 87045; 87046; 87086; 87324; 87328; 87329; 87449; 87493; 87899; 96361; 96374; 96375; A4216; C9113; G8978-GP-CK; G8979-GP-CK; G8980-GP-CK; J1642; J2405; J7042; P9016; S0028

== ENCOUNTER 2017-04-29 13:47 | Day surgery (SDC) | payer MEDICARE ==
[2017-04-29] MEDS ORDERED: diphenhydrAMINE 25 MG CAP ONE (15:23)
[2017-04-29] MEDS ORDERED: Acetaminophen 500 MG TAB ONE (15:23)
[2017-04-29 17:31] VITALS: TEMP 36.7
[2017-04-29 17:40] VITALS: BP 131/40
[2017-04-29 20:25] LABS: Hemoglobin 9.5 g/dL (12.0-16.0); Mean Corpuscular HGB CONC 33.3 g/dL (32.0-36.0); Mean Corpuscular Hemoglobin 30.6 pg (27.0-31.0); Mean Platelet Volume 8.1 fL (7.4-10.4); Platelet Count 69 thou/uL (130-400); RBC Distribution Width 14.4 % (11.5-14.5); Red Blood Cell (RBC) Count 3.09 mill/uL (4.20-5.40); White Blood Cell (WBC) Count 1.3 thou/uL (4.8-10.8)
[2017-04-29 20:36] LABS: Band 3 % (5-11); Lymphocytes 65 % (21-51); MDiff Complete? YES; Monocytes 14 % (0-10); Neutrophil 9 % (42-75); Ovalocytes SLIGHT = 2-5 cells (100X) (0-1/hpf); PLT Morphology Comment Appears Decreased; Polychromasia SLIGHT = 2-3 cells (100X) (0-2/hpf); Reactive Lymphocytes 8 % (0-10)
== END 2017-04-29 20:10 | disposition home or self-care (01) ==
LOC: SDC/OP 13:47
PROVIDERS: ATTEND Internal Medicine Hematology & Oncology
PROC: 30233N1 Transfusion of Nonautologous Red Blood Cells into Peripheral Vein, Percutaneous Approach (ICD-10-PCS; principal; 2017-04-29)
DX: I13.0 Hypertensive heart and chronic kidney disease with heart failure and stage 1 through stage 4 chronic kidney disease, or unspecified chronic kidney disease (principal); E11.22 Type 2 diabetes mellitus with diabetic chronic kidney disease; N18.3 Chronic kidney disease, stage 3 (moderate); D63.1 Anemia in chronic kidney disease; D69.6 Thrombocytopenia, unspecified; I50.9 Heart failure, unspecified; I25.2 Old myocardial infarction; I25.10 Atherosclerotic heart disease of native coronary artery without angina pectoris; F17.210 Nicotine dependence, cigarettes, uncomplicated; E78.5 Hyperlipidemia, unspecified; Z88.5 Allergy status to narcotic agent; Z88.1 Allergy status to other antibiotic agents; Z79.82 Long term (current) use of aspirin; Z79.899 Other long term (current) drug therapy; Z90.49 Acquired absence of other specified parts of digestive tract; Z90.710 Acquired absence of both cervix and uterus; Z98.890 Other specified postprocedural states
CPT/HCPCS: 36430; 85025; 86850; 86900; 86901; 86920; P9016; 36415; J1642; P9035

== ENCOUNTER 2017-08-27 12:08 | Outpatient (CLI) | payer MEDICARE | END 2017-08-27 12:09 | disposition home or self-care (01) | LOC: BICRAD 12:08 | PROVIDERS: ATTEND Radiology Radiation Oncology | DX: C34.91 Malignant neoplasm of unspecified part of right bronchus or lung (principal); J43.9 Emphysema, unspecified; Z95.9 Presence of cardiac and vascular implant and graft, unspecified | CPT/HCPCS: 71046 ==